=== PATIENT | female | born 1990 | race Two or more races ===

== ENCOUNTER → 2019-05-19 | Outpatient (CLI) | payer OTHER ==
[2019-05-19 13:26] LABS: Basophils # (auto) 0.1 uL; Basophils % (auto) 1.1 % (0.0-2.0); Eosinophils # (auto) 0.1 uL; Eosinophils % (auto) 1.9 % (0.0-7.0); Hematocrit 39.5 % (36.0-46.0); Hemoglobin 13.9 g/dL (12.2-16.2); Lymphocytes # (auto) 1.7 uL; Lymphocytes % (auto) 30.4 % (10.0-50.0); Mean Corpuscular Hemoglobin 31.9 pg (28.0-32.0); Mean Corpuscular Hgb Conc. 35.3 g/dL (32.0-36.0); Mean Corpuscular Volume 90.3 fL (80.0-100.0); Monocytes # (auto) 0.4 uL; Monocytes % (auto) 7.2 % (0.0-12.0); Neutrophils # (auto) 3.2 uL; Neutrophils % (auto) 59.4 % (37.0-80.0); Platelet Count (auto) 450 10^3/uL (140-450); Red Blood Cells 4.38 10^6/uL (4.0-5.20); Red Cell Distribution Width 12.6 % (11.8-14.3); White Blood Cell 5.5 10^3/uL (4.4-10.8)
[2019-05-19 13:45] LABS: Albumin 3.8 g/dL (3.4-5.0); Calcium 9.2 mg/dL (8.5-10.1); Potassium 3.7 mmol/L (3.5-5.1)
[2019-05-19 13:48] LABS: BUN/Creatinine Ratio 12.8; Bilirubin, Total 0.2 mg/dL (0.2-1.0); Total Protein 8.4 g/dL (6.4-8.2)
== END | disposition home or self-care (01) ==
LOC: LAB 13:00
PROVIDERS: ATTEND Internal Medicine
DX: R10.31 Right lower quadrant pain (principal); R11.0 Nausea
CPT/HCPCS: 36415; 80053; 82150; 84702; 85025; 85652; 87086

== ENCOUNTER → 2019-05-19 | Outpatient (CLI) | payer OTHER | END | disposition home or self-care (01) | LOC: XYW 13:44 | PROVIDERS: ATTEND Internal Medicine | DX: N20.0 Calculus of kidney (principal) | CPT/HCPCS: 74176 ==

== ENCOUNTER 2023-11-13 06:37 | Day surgery (SDC) | payer MEDICAID ==
[2023-11-07 11:15] LABS: Urine Bacteria None Seen /hpf (None Seen)
[2023-11-07 11:26] LABS: Basophils # (auto) 0 10 ^3/uL (0-0.2); Basophils % (auto) 0.2 % (0.0-2.0); Eosinophils # (auto) 0 10 ^3/uL (0-0.8); Eosinophils % (auto) 0.1 % (0.0-7.0); Hematocrit 40.4 % (36.0-46.0); Lymphocytes # (auto) 1.6 10 ^3/uL (0.4-5.4); Lymphocytes % (auto) 18.5 % (10.0-50.0); Mean Corpuscular Hemoglobin 31.5 pg (28.0-32.0); Mean Corpuscular Hgb Conc. 34.8 g/dL (32.0-36.0); Mean Corpuscular Volume 90.6 fL (80.0-100.0); Monocytes # (auto) 0.3 10 ^3/uL (0-1.3); Monocytes % (auto) 3.7 % (0.0-12.0); Neutrophils # (auto) 6.8 10 ^3/uL (1.6-8.6); Neutrophils % (auto) 77.5 % (37.0-80.0); Nucleated Red Blood Cells % 0.1 %; Red Blood Cells 4.45 10^6/uL (4.0-5.20); Red Cell Distribution Width 13.3 % (11.8-14.3); White Blood Cell 8.8 10^3/uL (4.4-10.8)
[2023-11-07 11:28] LABS: Urine Blood Negative /uL (Negative); Urine Clarity Clear (Clear); Urine Color Light-Yellow (Yellow); Urine Protein, UAD Negative (Negative); Urine Specific Gravity 1.011 (1.001-1.035); Urine Urobilinogen Normal (Negative); Urine WBC 1 /hpf (0 - 5)
[2023-11-07 11:42] LABS: Partial Thromboplastin Time 24.3 SEC (24.5-34.5); Prothrombin Time 10.6 sec (9.3-11.8)
[2023-11-07 11:59] LABS: Alanine Aminotransferase 19 U/L (7-40); Albumin 4.6 g/dL (3.2-4.8); Alkaline Phosphatase 54 U/L (46-116); Anion Gap 7 (5-15); Aspartate Aminotransferase < 8 U/L (13-40); BUN/Creatinine Ratio 8.5 (10.0-20.0); Blood Urea Nitrogen 7 mg/dL (9-23); Calcium 9.6 mg/dL (8.7-10.4); Carbon Dioxide 23 mmol/L (20-30); Chloride 109 mmol/L (98-107); Glucose 191 mg/dL (74-106); Sodium 139 mmol/L (136-145)
[2023-11-07 12:00] LABS: Bilirubin, Total 0.6 mg/dL (0.2-1.0)
[~2023-11-13] VITALS: Ht 152.4 cm; Wt 56.7 kg
[~2023-11-13 06:37] MED LIST: ARIP20TA4 PO; BENZ1TAB6 PO; FLUO40CA PO; GABA-339 PO; LORA-1121 PO; MAGN-46 PO; OMEG1400 PO; PANT40TA2 PO; RISP2TAB62 PO
[2023-11-13] MEDS ORDERED: LIDOCAINE VISCOUS 2% 15ML UD ONE (07:21)
[2023-11-13] MEDS ORDERED: SIMETHICONE 40 MG/0.6 ML ORAL DROP ONE (07:21)
[2023-11-13] MEDS: LIDOCAINE VISCOUS 2% 15ML UD MT ONE (08:05)
[2023-11-13] MEDS ORDERED: fentaNYL CITRATE 100 MCG/2 ML VL ONE (08:06)
[2023-11-13] MEDS ORDERED: MIDAZOLAM HCL 2MG/2ML 2ml VIAL (1mg/ml) ONE (08:06)
[2023-11-13] MEDS ORDERED: DexAMETHasone SOD PHOS 10MG/1ML VIAL INJ ONE (08:28)
[2023-11-13] MEDS ORDERED: PROPOFOL 10 MG/ML 20 ML IV ONE (08:28)
[2023-11-13 08:33] VITALS: RESP 12; TEMP 98.2; O2SAT 100
[2023-11-13 08:50] VITALS: BP 104/64; PULSE 82; RESP 17; O2SAT 97
== END 2023-11-13 09:00 | disposition home or self-care (01) ==
LOC: GI 06:37
PROVIDERS: ATTEND Internal Medicine Gastroenterology
DX: R10.13 Epigastric pain (principal); K29.50 Unspecified chronic gastritis without bleeding; K21.9 Gastro-esophageal reflux disease without esophagitis; F20.9 Schizophrenia, unspecified
CPT/HCPCS: 36415; 43239; 80053; 81001; 84702; 85025; 85610; 85730; 88305; 88312; 88342; J1100; J2250; J2704; J3010; J7030